=== PATIENT | male | born 1940 | race Caucasian/White ===

== ENCOUNTER 2017-12-18 16:03 | Emergency (ER) | payer MEDICARE, BC ==
[~2017-12-18] VITALS: Ht 172.7 cm; Wt 63.0 kg
[2017-12-18 16:06] VITALS: BP 172/90; PULSE 72; RESP 18; TEMP 98.4; O2SAT 99
[2017-12-18 17:26] LABS: AUTOMATED NEUTROPHIL # 4.6 TH/MM3 (1.8-7.7); BASOPHIL % 0.6 % (0.0-2.0); EOSINOPHIL # 0.1 TH/MM3 (0-0.4); EOSINOPHIL % 1.7 % (0.0-4.0); HEMATOCRIT 44.4 % (39.0-51.0); HEMOGLOBIN 15.6 GM/DL (13.0-17.0); LYMPH % 15.2 % (9.0-44.0); MEAN CELL VOLUME 96.9 FL (80.0-100.0); MEAN CORPUSCULAR HEMOGLOBIN 34.1 PG (27.0-34.0); MEAN CORPUSCULAR HGB CONC 35.2 % (32.0-36.0); MEAN PLATELET VOLUME 7.7 FL (7.0-11.0); NEUT % 67.5 % (16.0-70.0); PLATELET COUNT 167 TH/MM3 (150-450); RED BLOOD COUNT 4.58 MIL/MM3 (4.50-5.90); RED CELL DISTRIBUTION WIDTH 12.9 % (11.6-17.2); WHITE BLOOD COUNT 6.8 TH/MM3 (4.0-11.0)
[2017-12-18 17:26] LABS: BILIRUBIN, URINE NEG (NEG); BLOOD, URINE NEG (NEG); GLUCOSE,URINE NEG (NEG); KETONE, URINE NEG (NEG); NITRITE,URINE NEG (NEG); PH, URINE 5.5 (5.0-8.5); URINE COLOR COLORLESS (YELLW/STRAW); URINE LEUKOCYTE ESTERASE NEG (NEG)
--- NOTE | 2017-12-18 17:41 | PD ---
HPI Chief Complaint: General Weakness Time Seen by Provider: 17:38 Travel History International Travel<30 days: No Contact w/Intl Traveler<30days: No Traveled to known affect area: No History of Present Illness HPI 77-year-old male came to the emergency room with history of generalized weakness that started yesterday. Patient says it started off as some runny nose and lack of energy. They were planning on a trip to go to [place]. They are from [place] and started off for the trip anyways. Patient was taking Tylenol and Zicam which would give him relief for couple hours. Today when the symptoms continued they decided to come to the emergency room. No history of fever or chills. No history of pain anywhere. Vital signs are stable. Patient is a relatively healthy individual. No recent change of medications. Blood test was ordered and done from triage by the time I went to see the patient. His is here with him. PFSH Past Medical History Narrative Medical List of his past medical, surgical, social and family history reviewed from the nursing note. Hx Anticoagulant Therapy: Yes (ASA) Social History Tobacco Use: No Allergies-Medications (Allergen,Severity, Reaction): Coded Allergies: Sulfa (Sulfonamide Antibiotics) (Verified Allergy, Unknown, PARENT ALLERGY SO HE DOESNT TAKE IT, 12/18/17) Comments List of his allergies reviewed from the nursing note. Reported Meds & Prescriptions Reported Meds & Active Scripts Active Reported Aspirin 81 Mg Chew 81 Mg CHEW DAILY Metoprolol Tartrate 25 Mg Tab 12.5 Mg PO DAILY Losartan (Losartan Potassium) 25 Mg Tab 12.5 Mg PO DAILY Narrative Medication Waiting for the nurse to do the med reconciliation Review of Systems Except as stated in HPI: all other systems reviewed are Neg Physical Exam Narrative GENERAL: Awake, alert, no obvious distress SKIN: Focused skin assessment warm/dry. HEAD: Atraumatic. Normocephalic. EYES: Pupils equal and round. No scleral icterus. No injection or drainage. ENT: No nasal bleeding or discharge. Mucous membranes pink and moist. NECK: Trachea midline. No JVD. CARDIOVASCULAR: Regular rate and rhythm. No murmur appreciated. RESPIRATORY: No accessory muscle use. Clear to auscultation. Breath sounds equal bilaterally. GASTROINTESTINAL: Abdomen soft, non-tender, nondistended. Hepatic and splenic margins not palpable. MUSCULOSKELETAL: No obvious deformities. No clubbing. No cyanosis. No edema. NEUROLOGICAL: Awake and alert. No obvious cranial nerve deficits. Motor grossly within normal limits. Normal speech. PSYCHIATRIC: Appropriate mood and affect; insight and judgment normal. Data Data Last Documented VS Vital Signs Date Time Temp Pulse Resp B/P (MAP) Pulse Ox O2 Delivery O2 Flow Rate FiO2 12/18/17 19:34 12/18/17 16:06 98.4 72 18 99 Room Air Orders Orders Complete Blood Count With Diff (12/18/17 16:32) Comprehensive Metabolic Panel (12/18/17 16:32) Urinalysis - C+S If Indicated (12/18/17 16:32) Sodium Chlor 0.9% 1000 Ml Inj (Ns 1000 M (12/18/17 18:00) Influenzae A/B Antigen (12/18/17 18:01) Ed Discharge Order (12/18/17 19:07) Labs Laboratory Tests Test 12/18/17 16:35 12/18/17 16:40 White Blood Count 6.8 TH/MM3 Red Blood Count 4.58 MIL/MM3 Hemoglobin 15.6 GM/DL Hematocrit 44.4 % Mean Corpuscular Volume 96.9 FL Mean Corpuscular Hemoglobin 34.1 PG Mean Corpuscular Hemoglobin Concent 35.2 % Red Cell Distribution Width 12.9 % Platelet Count 167 TH/MM3 Mean Platelet Volume 7.7 FL Neutrophils (%) (Auto) 67.5 % Lymphocytes (%) (Auto) 15.2 % Monocytes (%) (Auto) 15.0 % Eosinophils (%) (Auto) 1.7 % Basophils (%) (Auto) 0.6 % Neutrophils # (Auto) 4.6 TH/MM3 Lymphocytes # (Auto) 1.0 TH/MM3 Monocytes # (Auto) 1.0 TH/MM3 Eosinophils # (Auto) 0.1 TH/MM3 Basophils # (Auto) 0.0 TH/MM3 CBC Comment DIFF FINAL Differential Comment Blood Urea Nitrogen 25 MG/DL Creatinine 1.15 MG/DL Random Glucose 84 MG/DL Total Protein 7.2 GM/DL Albumin 3.6 GM/DL Calcium Level 8.8 MG/DL Alkaline Phosphatase 101 U/L Aspartate Amino Transf (AST/SGOT) 44 U/L Alanine Aminotransferase (ALT/SGPT) 54 U/L Total Bilirubin 0.5 MG/DL Sodium Level 126 MEQ/L Potassium Level 4.8 MEQ/L Chloride Level 93 MEQ/L Carbon Dioxide Level 27.1 MEQ/L Anion Gap 6 MEQ/L Estimat Glomerular Filtration Rate 62 ML/MIN Urine Color COLORLESS Urine Turbidity CLEAR Urine pH 5.5 Urine Specific Sheldon 1.005 Urine Protein NEG mg/dL Urine Glucose (UA) NEG mg/dL Urine Ketones NEG mg/dL Urine Occult Blood NEG Urine Nitrite NEG Urine Bilirubin NEG Urine Urobilinogen LESS THAN 2.0 MG/DL Urine Leukocyte Esterase NEG Urine RBC LESS THAN 1 /hpf Microscopic Urinalysis Comment CULT NOT INDICATED MDM Medical Decision Making Medical Screen Exam Complete: Yes Emergency Medical Condition: Yes Medical Record Reviewed: Yes Differential Diagnosis Hyponatremic dehydration Narrative Course 6:37 PM I discussed the blood test results with the patient and his . His sodium and chloride is low and patient and his told me that he had a low sodium a few months back as well and his primary care had asked him to drink Gatorade. And that corrected the sodium soon. The also told me that patient is a compulsive water drinker. Patient says that he loves drinking water and drinks gallons of it every day as well as at night. I have ordered for 1 L off normal saline bolus. Awaiting for a rapid flu test at this point. If that is negative patient will be discharged home. I have given him recommendation to drink fluid that has more electrolytes rather than plain water. He will eventually need to follow-up with his primary care when he returns home. Procedures EKG Prior to Arrival: No Diagnosis Primary Impression: Dehydration with hyponatremia Additional Impression: Compulsive water drinking Referrals: Primary Care Physician Additional Instructions: Please drink fluid that has more of electrolytes like sodium in it. Return to the ER if condition worsens or any other new concerns. Follow-up with your primary care when you return home. Med/Other Pt SpecificInfo: No Change to Meds Disposition: 01 DISCHARGE HOME Condition: Stable All Shannon MD Dec 18, 2017 17:41
[2017-12-18 17:42] LABS: ALBUMIN 3.6 GM/DL (3.4-5.0); AST (GOT) 44 U/L (15-37); BICARBONATE 27.1 MEQ/L (21.0-32.0); BLOOD UREA NITROGEN 25 MG/DL (7-18); CALCIUM 8.8 MG/DL (8.5-10.1); CHLORIDE 93 MEQ/L (98-107); CREATININE 1.15 MG/DL (0.60-1.30); GLOMERULAR FILTRATION RATE 62 ML/MIN (>89); GLUCOSE,RANDOM 84 MG/DL (74-106); SODIUM (NA) 126 MEQ/L (136-145)
[2017-12-18 17:46] LABS: ALKALINE PHOSPHATASE 101 U/L (45-117); ALT (GPT) 54 U/L (12-78); TOTAL BILIRUBIN ADULT 0.5 MG/DL (0.2-1.0); TOTAL PROTEIN 7.2 GM/DL (6.4-8.2)
[2017-12-18] MEDS ORDERED: SODIUM CHLOR 0.9% 1000 ML INJ 1,000 ML IV ONE (18:00)
[2017-12-18] MEDS ORDERED: METO25TA3 PO (19:04)
[2017-12-18] MEDS ORDERED: ASPI-516 CHEW (19:04)
[2017-12-18] MEDS ORDERED: LOSA25TA PO (19:04)
== END 2017-12-18 19:53 | disposition home or self-care (01) ==
LOC: NEPD 16:03
DX: E86.0 Dehydration (principal); E87.1 Hypo-osmolality and hyponatremia; R63.1 Polydipsia
CPT/HCPCS: 80053; 81001; 85025; 87804; 99283; J7030